=== PATIENT | female | born 1945 | race Caucasian/White ===

== ENCOUNTER 2022-10-15 15:56 | Emergency (ER) | payer OTHER ==
[~2022-10-15] VITALS: Ht 162.6 cm; Wt 65.0 kg
[2022-10-15 16:01] VITALS: TEMP 97.4; O2SAT 94
[2022-10-15] MEDS ORDERED: KETOROLAC 30MG/ML VIAL IV STA (16:26)
[2022-10-15] MEDS ORDERED: SODIUM CHLORIDE 0.9% 1,000 ML IV ONE (16:30)
[2022-10-15] MEDS ORDERED: METOCLOPRAMIDE HCL 10MG/2ML VIAL IV ONE (16:30)
[2022-10-15 16:44] LABS: BASOPHILS % 0.6 % (0.0-2.0); EOSINOPHILS % 1.9 % (0.0-5.0); HEMATOCRIT. 36.1 % (36.0-48.0); HEMOGLOBIN. 12.2 g/dL (12.0-16.0); LYMPHOCYTES % 22.9 % (20.0-50.0); MEAN CORPUSCULAR HEMOGLOBIN 31.9 pg (28.0-32.0); MEAN CORPUSCULAR HGB CONC 33.8 g/dL (31.0-37.0); MEAN CORPUSCULAR VOLUME 94.5 fL (81.0-99.0); MEAN PLATELET VOLUME 8.3 fl (7.4-10.4); MONOCYTES % 6.2 % (2.0-8.0); NEUTROPHILS % 68.4 % (40.0-76.0); PLATELET 295 x1000/uL (130-400); RED BLOOD CELL COUNT 3.82 mill/uL (4.2-5.4); RED CELL DISTRIBUTION WIDTH 13.4 % (11.6-14.6); WHITE BLOOD COUNT 11.4 x1000/uL (4.5-11.0)
[2022-10-15 16:56] LABS: CHLORIDE 104 mEq/L (98-107); INDEX HEMOLYSI 1 (1-3); INDEX ICTERIC 1 (1-4); INDEX LIPEMIC 1 (1-3); POTASSIUM 3.8 mEq/L (3.5-5.1); SODIUM 137 mEq/L (136-145)
[2022-10-15 17:07] LABS: ALANINE AMINOTRANSFERASE 24 IU/L (13-61); ALBUMIN 3.6 g/dL (3.4-5.0); ASPARTATE AMINOTRANSFERASE 17 IU/L (15-37); BILIRUBIN TOTAL 0.4 mg/dL (0.1-1.0); CALCIUM 9.2 mg/dL (8.5-10.1); CARBON DIOXIDE 26 mEq/L (21-32); CREATININE 0.6 mg/dL (0.6-1.3); GLUCOSE 58 mg/dL (70-105); NT PRO B-TYPE NATRIURETIC PEP 43 pg/mL (5-125); PROTEIN TOTAL 7.4 g/dL (6.0-8.3); TROPONIN I HIGH SENSITIVITY 26 ng/L (<54); UREA NITROGEN BLOOD 25 mg/dL (7-21)
[2022-10-15 17:13] LABS: LACTIC ACID 2.6 mmol/L (0.4-2.0)
[2022-10-15 17:32] VITALS: BP 129/52; PULSE 69; RESP 18
[2022-10-15] MEDS ORDERED: LIDO700A30 TP (20:22)
== END 2022-10-16 00:01 | disposition home or self-care (01) ==
LOC: ER 15:56
DX: E11.9 Type 2 diabetes mellitus without complications (principal); I10 Essential (primary) hypertension
CPT/HCPCS: 99285; 96374; 70450; 71045; 96375; 80053; 82962; 83880; 83605; 83690; 85025; 84484; 36415; 73030; 93005; J1885; J2765; J7030